=== PATIENT | female | born 1975 | race African-American/Black ===

== ENCOUNTER → 2016-05-25 | Outpatient (CLI) | payer BC ==
--- NOTE | 2016-05-26 15:10 | KCIC ---
DATE: 05/25/2016 EXAM: DIGITAL DIAGNOSTIC BILATERAL HISTORY: Bilateral breast lumps. COMPARISON: None. This is a baseline exam This study was interpreted with the benefit of Computerized Aided Detection (CAD). FINDINGS: The breast parenchyma shows scattered fibroglandular densities. Breast parenchyma level B. The areas of palpable concern marked. On the initial cc view of the left breast, laterally, there is a area of slightly increased density. Additional imaging was obtained including a coned compression view and rolled cc views and an ML view. On the additional images no definite abnormality is seen and the findings on the screening examination likely reflects summation artifact. There are, additionally, particularly on the rolled cc view medially small well defined opacities which have a benign appearance on mammography. No suspect calcifications are seen. Occasional benign-appearing calcifications are noted the right breast appears unremarkable. Targeted ultrasound of the breasts was performed at the 5:00 position of the left breast 3 cm from the nipple there is a hypoechoic 1 cm mass probably reflecting a partially septated cyst. The ultrasound features suggest a benign etiology. Targeted ultrasound of the right breast is unremarkable. No mass or abnormality is seen. IMPRESSION: Probable septated cyst in the left breast. Benign appearing masses in the left breast on mammography. Probable summation artifact laterally in the breast. Targeted ultrasound of the left breast in 6 months and left breast mammography are advised. BI-RADS CATEGORY: 3 PROBABLE BENIGN FINDING(S-SHORT INTERVAL FOLLOW-UP SUGGESTED RECOMMENDED FOLLOW-UP: 6M 6 MONTH FOLLOW-UP PQRS compliance statement: Patient information was entered into a reminder system with a target due date 11/22/2016 for the next mammogram. Mammography is a sensitive method for finding small breast cancers, but it does not detect them all and is not a substitute for careful clinical examination. A negative mammogram does not negate a clinically suspicious finding and should not result in delay in biopsying a clinically suspicious abnormality. "Our facility is accredited by the [employer] Mammography [employer]." DICTATED and SIGNED BY: LEONARDO MENDEZ MD DATE: 05/25/16 1101 MTDTai
== END | disposition home or self-care (01) ==
LOC: KCIC MAMMO 10:00
PROVIDERS: ATTEND Physician Assistant Surgical
DX: R92.8 Other abnormal and inconclusive findings on diagnostic imaging of breast (principal); N63 Unspecified lump in breast
CPT/HCPCS: 76641; 77051; G0204

== ENCOUNTER → 2017-01-13 | Outpatient (CLI) | payer BC ==
--- NOTE | 2017-01-13 13:00 | RAD ---
Pelvic ultrasound Indication: Right lower quadrant pain Technique: Grayscale and color Doppler ultrasound of the pelvis obtained Comparison: None Findings: The uterus measures 8.6 x 5.1 x 4.5 cm with multiple fibroids, the largest in the right side measuring 3.5 x 2.5 x 3.1 cm and the largest in the left side measuring 3.9 x 2.9 x 2.7 cm. Endometrial stripe measures 3.3 mm and is within normal limits. Multiple nabothian cysts are seen. The right ovary measures 3.8 x 3.2 x 2.2 cm with multiple anechoic cysts with thick curry measuring 3 mm in thickness. No mural nodularity noted. Evidence of blood flow is seen in the right ovary. Limited evaluation of left ovary secondary to adjacent bowel loops. The left ovary grossly measures 2.5 x 2.5 x 2.0 cm with small simple appearing cyst. Trace free pelvic fluid. Impression: 1. Fibroid uterus. 2. Few thick-walled right ovarian cysts most likely physiologic without internal debris or mural nodularity. However, repeat ultrasound in 6-8weeks is recommended for follow-up.
== END | disposition home or self-care (01) ==
LOC: US 09:51
PROVIDERS: ATTEND Physician Assistant Surgical
DX: D25.9 Leiomyoma of uterus, unspecified (principal); N83.201 Unspecified ovarian cyst, right side; N88.8 Other specified noninflammatory disorders of cervix uteri
CPT/HCPCS: 76830; 76856

== ENCOUNTER → 2017-02-04 | Outpatient (CLI) | payer BC ==
--- NOTE | 2017-02-04 14:35 | KCIC ---
History: Follow-up asymmetric tissue densities. Technique: Bilateral digital mammographic routine views were obtained with CAD - computer aided detection. Comparison: May 25, 2016. Findings: Breast Tissue Density B :The breast tissue is composed of mixed fatty and fibroglandular tissue. There are no suspicious masses, microcalcifications or areas of architectural distortion. Impression: Negative mammogram. BI-RADS Category 1: Negative. Normal interval followup with a bilateral screening mammogram in May. These results were given to the patient person. A mammogram does not have 100% sensitivity and therefore a negative imaging study should not delay further work up of a suspicious abnormality. The patient will receive a letter with the results in the mail. Patient information is entered into the reminder system with a target due date for the next screening mammogram. The patient will receive a reminder. "Our facility is accredited by the [employer] Mammography [employer]." Electronically signed by: Jono Ricketts III, MD (02/04/2017 2:32 PM) [id number]
--- NOTE | 2017-02-04 14:37 | KCIC ---
Left breast diagnostic ultrasound HISTORY: Follow-up benign-appearing lesion Sonographic examination was performed of the 5:00 left breast and multiple static images were obtained. COMPARISON: May 25, 2016 There is no focal abnormality. IMPRESSION: Negative examination. These results were given to the patient in person. BI-RADS Category 1: Negative. Electronically signed by: Jono Ricketts III, MD (02/04/2017 2:33 PM) [id number]
== END | disposition home or self-care (01) ==
LOC: KCIC MAMMO 12:54
PROVIDERS: ATTEND Physician Assistant Surgical
DX: N63 Unspecified lump in breast (principal)
CPT/HCPCS: 76641; G0206; 77065

== ENCOUNTER → 2017-10-03 | Outpatient (CLI) | payer BC | END | disposition home or self-care (01) | LOC: US 11:30 | DX: N83.291 Other ovarian cyst, right side (principal); D25.9 Leiomyoma of uterus, unspecified | CPT/HCPCS: 76830; 76856 ==